=== PATIENT | female | born 1985 | race Caucasian/White ===

== ENCOUNTER 2023-05-06 07:58 | Outpatient (CLI) | payer BC, SELFPAY | END 2023-05-06 07:59 | disposition home or self-care (01) | PROVIDERS: PCP Family Medicine; Visit Provider Family Medicine | DX: Z00.00 Encounter for general adult medical examination without abnormal findings (principal); Z13.6 Encounter for screening for cardiovascular disorders; Z13.29 Encounter for screening for other suspected endocrine disorder; Z13.21 Encounter for screening for nutritional disorder | CPT/HCPCS: 80053; 80061; 82306 ==

== ENCOUNTER 2024-07-22 09:50 | Outpatient (CLI) | payer BC, SELFPAY | END 2024-07-22 09:51 | disposition home or self-care (01) | PROVIDERS: Visit Provider Obstetrics & Gynecology | DX: O20.9 Hemorrhage in early pregnancy, unspecified (principal); Z67.40 Type O blood, Rh positive | CPT/HCPCS: 84702; 86850; 86900; 86901 ==

== ENCOUNTER 2024-07-24 15:02 | Outpatient (CLI) | payer BC, SELFPAY | END 2024-07-24 15:03 | disposition home or self-care (01) | LOC: NFLDREF 19:53 | PROVIDERS: Visit Provider Obstetrics & Gynecology | DX: O20.9 Hemorrhage in early pregnancy, unspecified (principal) | CPT/HCPCS: 84702 ==

== ENCOUNTER 2024-07-26 13:58 | Outpatient (CLI) | payer BC, SELFPAY ==
--- NOTE | 2024-07-26 14:00 | CRLHL7_ITS ---
For Patients: As a result of the Century Cures Act, medical imaging exams and procedure reports are released immediately into your electronic medical record. You may view this report before your referring provider. If you have questions, please contact your health care provider. INDICATION: Dating and viability. LMP 06/08/2024. COMPARISON: None. TECHNIQUE: Real-time carreno-scale imaging of the pelvis was performed. FINDINGS: Sonographic imaging demonstrates a single living intrauterine gestation. The embryo has a regular cardiac rate measuring 139 beats per minute. The embryo`s crown-rump length measures 0.7 cm which corresponds to a gestational age of 6 weeks 4 days with sonographic due date 03/17/2025. There is a normal-appearing yolk sac. The placenta has not yet developed. No evidence of a perigestational hemorrhage. The right ovary measures 3.1 x 1.5 x 2.9 cm and the left ovary measures 2.0 x 2.2 x 2.4 cm. No free fluid in the pelvic cul-de-sac. IMPRESSION: 1. Single living intrauterine gestation corresponding to an ultrasound gestational age of 6 weeks 4 days with sonographic due date 03/17/2025. 2. The clinical gestational age by LMP is 6 weeks 6 days. Dictated by Tali Sousa MD @ 07/27/2024 2:58:33 AM (Electronically Signed)
== END 2024-07-26 13:59 | disposition home or self-care (01) ==
LOC: US 13:59
PROVIDERS: Visit Provider Obstetrics & Gynecology
DX: Z34.91 Encounter for supervision of normal pregnancy, unspecified, first trimester (principal); Z3A.01 Less than 8 weeks gestation of pregnancy
CPT/HCPCS: 76817

== ENCOUNTER 2024-08-23 10:29 | Outpatient (CLI) | payer BC, SELFPAY ==
--- NOTE | 2024-08-23 10:45 | CRLHL7_ITS ---
For Patients: As a result of the Cures Act, medical imaging exams and procedure reports are released immediately into your electronic medical record. You may view this report before your referring provider. If you have questions, please contact your health care provider. OB ULTRASOUND INDICATION: Follow-up early OB dating. TECHNIQUE: Real time carreno scale imaging of the fetus was performed. Transvaginal. LMP: 06/08/2024. JOY by LMP: 03/15/2025. GA: 10 w, 6 d. Previous US: Yes 07/26/2024. OJY by US: 03/17/2025. GA: 6 w, 4 d. CRL: 4.6 cm. 11 w 3 d. JOY: 03/11/2025. FHR: 169BPM. Gestational sac: 4.9 cm. Appears within normal limits. Yolk sac: 4.7 mm. Appears within normal limits. Right ovary: Within normal limits. 3.0 x 1.8 x 2.8 cm. Left ovary: Within normal limits. 3.4 x 2.0 x 2.1 cm. IMPRESSION: 1. Single living intrauterine with sonographic gestational age 11 weeks 3 days and sonographic due date 03/11/2025. 2. Subchorionic hemorrhage measures 2.6 x 0.5 x 3.3 cm. Dilip Ambrosio M.D. Diagnostic Radiologist [email or web address] JAYASHREE/[email or web address] [email or web address]/Dictated by: Dilip Ambrosio MD @ 08/23/2024 12:52:00 PM (Electronically Signed)
== END 2024-08-23 10:30 | disposition home or self-care (01) ==
LOC: US 10:30
PROVIDERS: Visit Provider Midwife
DX: Z34.91 Encounter for supervision of normal pregnancy, unspecified, first trimester (principal); O20.9 Hemorrhage in early pregnancy, unspecified; Z3A.11 11 weeks gestation of pregnancy
CPT/HCPCS: 76801

== ENCOUNTER 2024-08-23 12:01 | Outpatient (CLI) | payer BC, SELFPAY ==
[2024-08-23 21:32] LABS: Chlamydia DNA Amplified* NOT DETECTED (No Detected); GC DNA Amplified* NOT DETECTED (No Detected)
== END 2024-08-23 12:02 | disposition home or self-care (01) ==
PROVIDERS: Visit Provider Midwife
DX: Z36.89 Encounter for other specified antenatal screening (principal); O09.521 Supervision of elderly multigravida, first trimester; O21.9 Vomiting of pregnancy, unspecified; Z87.59 Personal history of other complications of pregnancy, childbirth and the puerperium; Z3A.10 10 weeks gestation of pregnancy
CPT/HCPCS: 76801; 82565; 82570; 83020; 83021; 84156; 84450; 84460; 84520; 84550; 85660; 86592; 86703; 86704; 86706; 86762; 86787; 86803; 86850; 86900; 86901; 87086; 87340; 87491; 87591

== ENCOUNTER 2024-08-26 06:45 | Outpatient (CLI) | payer BC, SELFPAY | END 2024-08-26 06:46 | disposition home or self-care (01) | LOC: NFLDREF 09-01 16:40 | PROVIDERS: Visit Provider Midwife | DX: O09.291 Supervision of pregnancy with other poor reproductive or obstetric history, first trimester (principal) | CPT/HCPCS: 82570; 84156 ==

== ENCOUNTER 2024-10-26 10:12 | Outpatient (CLI) | payer BC, SELFPAY | END 2024-10-26 10:13 | disposition home or self-care (01) | LOC: US 10:13 | PROVIDERS: Visit Provider Midwife | DX: O09.522 Supervision of elderly multigravida, second trimester (principal); Z3A.20 20 weeks gestation of pregnancy | CPT/HCPCS: 76811 ==

== ENCOUNTER 2024-12-26 10:59 | Outpatient (CLI) | payer BC, SELFPAY | END 2024-12-26 11:00 | disposition home or self-care (01) | LOC: NFLDREF 12-28 02:51 | PROVIDERS: Visit Provider Advanced Practice Midwife | DX: Z34.83 Encounter for supervision of other normal pregnancy, third trimester (principal) | CPT/HCPCS: 86592 ==

== ENCOUNTER 2025-01-24 15:54 | Outpatient (CLI) | payer BC, SELFPAY | END 2025-01-24 15:55 | disposition home or self-care (01) | LOC: NFLDREF 15:55 | PROVIDERS: Visit Provider Physician Assistant | DX: Z3A.32 32 weeks gestation of pregnancy (principal) | CPT/HCPCS: 84439; 84443 ==

== ENCOUNTER 2025-02-20 15:17 | Outpatient (CLI) | payer BC, SELFPAY | END 2025-02-20 15:18 | disposition home or self-care (01) | LOC: NFLDREF 02-22 17:26 | PROVIDERS: Visit Provider Advanced Practice Midwife | DX: O09.523 Supervision of elderly multigravida, third trimester (principal); O99.283 Endocrine, nutritional and metabolic diseases complicating pregnancy, third trimester; E05.90 Thyrotoxicosis, unspecified without thyrotoxic crisis or storm; Z87.59 Personal history of other complications of pregnancy, childbirth and the puerperium; Z3A.36 36 weeks gestation of pregnancy | CPT/HCPCS: 84443; 87081; 87653 ==

== ENCOUNTER 2025-02-24 08:30 | Outpatient (CLI) | payer BC, SELFPAY ==
--- NOTE | 2025-02-24 08:35 | W.PM.GYNPROC ---
Procedure Note Will [facility] bill your pro fee for this procedure?: Yes Procedure Description: The risks, benefits, and alternatives of performing an ECV were discussed on admission, including the risk of risks of a non-reassuring heart rate, PROM, placental abruption, possible emergency , and fetomaternal hemorrhage. We reviewed that success rate is dependent upon provider experience, amniotic fluid volume, placental location, and maternal weight. Regional anesthesia is associated with improved success. We discussed that in the case of a failed ECV, we plan a delivery for persistent malpresentation. Consent was obtained and the patient desired to proceed. Ultrasound confirmed [] breech malpresentation prior to procedure. Procedure Note: Patient was seen and examined by anesthesia. Spinal anesthesia was placed without complications. Terbutaline 0.25 mg SQ was given and we then proceeded with the procedure. With manual pressure applied to the maternal abdomen, we attempted version in both the clockwise and counterclockwise position. A total of [] attempts were made. Ultimately the procedure was [] successful and presentation at the conclusion was []. Both mom and baby were stable. During a period of recovery, she had a reactive and reassuring heart tracing with [] uterine contractions. She was discharged to home in stable condition, return precautions reviewed.
[2025-02-24 09:14] VITALS: PULSE 120; O2SAT 99
[2025-02-24 09:17] VITALS: BP 134/80; PULSE 112
[2025-02-24 09:18] VITALS: RESP 17; TEMP 36.9
[2025-02-24 09:19] VITALS: PULSE 103; O2SAT 98
[2025-02-24 09:24] VITALS: PULSE 114; O2SAT 97
--- NOTE | 2025-02-24 10:22 | PM.OBLDTN ---
OB - Triage/Final Diagnosis Visit Information Time Seen by Provider: 08:30 Narrative: The patient is a 39 year old 2 para 1 at 37 weeks gestation by LMP, who presents for scheduled external cephalic version. is complicated by malpresentation, AMA and GBS positivity. On arrival, patient noted uncertainty with proceeding. As such, presented to the bedside before IV/monitoring was started. Performed a bedside transabdominal ultrasound, where complete breech malpresentation was confirmed. Explained that I would advise against a single alberts breech vaginal delivery in the setting of significant morbidity/mortality. She expressed understanding and is agreement. Such, we discussed options for management of malpresentation at term including external cephalic version versus primary delivery at 39 weeks. The risks, benefits, and alternatives of performing an ECV were discussed, including the risk of risks of a non-reassuring heart rate that could necessitate emergency delviery, PROM, placental abruption, possible emergency , and fetomaternal hemorrhage. We reviewed that success rate is dependent upon provider experience, amniotic fluid volume, placental location, and maternal weight. Discussed consideration of terbutaline and regional anesthesia for improved likelihood of success. Alcira notes that she is uncomfortable with the risks of ECV. She notes she simply does not feel good about it and thus would like to proceed with scheduling a primary . Certainly, this is reasonable. She denies any regular/painful contractions, vaginal bleeding or leaking of fluid. Endorses active movement. We proceeded to discussion about primary delivery where we would confer malpresentation prior to proceeding. We reviewed the risks of bleeding, infection, damage to surrounding structures (uterus, tubes, ovaries, bowel, bladder, blood vessels, baby) and medical complications of surgery/anesthesia such as VTE, heart attack and stroke. After discussion, written consent was obtained for primary and proceed as indicated. Scheduling form completed to be completed in 39th week. NST was completed, initially nonreactive for absence of accelerations - ultimately became reactive with p.o. intake. Baseline a 140 beats per minute, moderate variability, several qualifying 15 x 15 accelerations seen, no decelerations. Patient was discharged to home with strict return precautions. Recommend routine visits in the clinic. She is free to continue spinning babies exercises in the interim. Evaluation Vital signs: Vital Signs - 24 hr 02/24/25 09:14 02/24/25 09:17 02/24/25 09:18 Temperature 98.4 F Pulse Rate 112 H Respiratory Rate 17 Blood Pressure 134/80 Pulse Oximetry 99 02/24/25 09:19 02/24/25 09:24 Temperature Pulse Rate Respiratory Rate Blood Pressure Pulse Oximetry 98 97
--- NOTE | 2025-02-24 11:57 | PC.OBNST ---
NST Note NST Note Start: 02/24/25 10:35 Freq: ONCE Status: Active Protocol: Document 02/24/25 11:51 VMM (Rec: 02/24/25 11:57 VMM [id number]) NST Note 3 Para (# of births) 1 EDC 03/15/25 Gestational Age In 37 Weeks & 2 Days Weeks & Days Patient Presented Other with Complaint(s) of Other Complaints Patient came in for a scheduled external cephalic version. Patient decided she did not want an external cephalic version. NST was obtained to check for well-being. Fetus is complete breech. Reactive Yes Appropriate for Yes Gestational Age ARTHUR Rausch RN Date 02/24/25 Reactive Yes Appropriate for Yes Gestational Age ARTHUR Torres RN Date 02/24/25 OB NST charge Yes Complete NST Note Yes via Write Note The provider's electronic signature indicates the NST is reactive/appropriate for gestational age. *Note to provider: If an addendum is required, open the patient's chart and click on the note under the Nurse/Allied Health tab.
== END 2025-02-24 11:45 | disposition home or self-care (01) ==
LOC: OB CLI 08:31 → OB 08:33
PROVIDERS: Visit Provider Obstetrics & Gynecology
DX: Z39.1 Encounter for care and examination of lactating mother (principal)
CPT/HCPCS: 59025; 76815; G0463

== ENCOUNTER 2025-03-13 12:02 | Outpatient (CLI) | payer BC, SELFPAY ==
--- NOTE | 2025-03-13 12:15 | CRLHL7_ITS ---
For Patients: As a result of the Century Cures Act, medical imaging exams and procedure reports are released immediately into your electronic medical record. You may view this report before your referring provider. If you have questions, please contact your health care provider. OB ULTRASOUND JOY by LMP or US: 03/15/2025. GA: 39 w, 5 d. Single. Comparison: 10/26/2024. INDICATION: Measuring large for dates. TECHNIQUE: Real time grayscale imaging of the fetus was performed. Transabdominal. CERVIX: Not visualized. POSITIONING: Vertex. AMNIOTIC FLUID: 5.6 cm. SDP (N: greater than 2 x 1 cm) PLACENTA: Technique: Transabdominal. PLACENTA POSITION: Posterior. DOPPLER: heart rate: 149 bpm. BIOMETRY: BPD: 9.2 cm. 37 w, 3 d, 29 percent. HC: 34.9 cm. 40 w, 4 d, 67 percent. AC: 39.4 cm. OOR, >97 percent. FL: 7.3 cm. 37 w, 3 d, 11 percent. FL/AC ratio: 18.55 percent. HC/AC ratio: 0.89. EFW: 4321 g. Weight: 9 lbs, 8 oz. age by this US: 38 w, 3 d. JOY by this US: 03/24/2025. Percentile by JOY: 95 percent. IMPRESSION: 1. Sonographic gestational age 38 weeks 3 days and sonographic due date 03/24/2025. Sonographic age is 9 days behind clinical age. 2. Estimated weight 95th percentile. Abdominal circumference greater than 97th percentile. Dilip Ambrosio M.D. Diagnostic Radiologist [email or web address] JAYASHREE/[email or web address] [email or web address]/Dictated by: Dilip Ambrosio MD @ 03/13/2025 1:01:00 PM (Electronically Signed)
== END 2025-03-13 12:03 | disposition home or self-care (01) ==
LOC: US 12:03
PROVIDERS: Visit Provider Advanced Practice Midwife
DX: O36.63X0 Maternal care for excessive fetal growth, third trimester, not applicable or unspecified (principal); Z3A.38 38 weeks gestation of pregnancy
CPT/HCPCS: 76816; 82565; 82570; 84156; 84450; 84460; 84520

== ENCOUNTER 2025-03-14 08:18 | Inpatient (IN) | payer BC, SELFPAY ==
[2025-03-14] VITALS (24 sets, daily range): BP systolic 99–136; BP diastolic 52–83; PULSE 69–144; RESP 16–18; TEMP 36.4–36.9; O2SAT 81–99; BMI 38.4
[2025-03-14] MEDS: AZITHROMYCIN 500 MG in 0.9 % SODIUM CHLORIDE 250 ml 250 ML 255 MG IVPB (08:50)
[2025-03-14] MEDS: LACTATED RINGERS 1000 ML 1,000 ML IV (09:00)
[2025-03-14 09:06] LABS: Alanine Aminotransferase* 13 U/L (4-35); Aspartate Amino Transferase* 25 U/L (12-35); Blood Urea Nitrogen* 5 mg/dL (5-24); Creatinine* 0.5 mg/dL (0.5-1.5); Est. Creatinine Clearance* 130.44; Estimated Glomerular Filt Rate 122 ml/min
[2025-03-14 09:08] LABS: Hematocrit 33.2 % (33.0-51.0); Hemoglobin* 10.8 gm/dL (12.0-16.0); Mean Corpuscular HGB Conc 33 gm/dL (32-36); Mean Corpuscular Hemoglobin 28 pg (26-34); Mean Corpuscular Volume 86 fL (80-100); RDW Coefficient of Variation % 14.1 % (11.5-15.5); Red Blood Count 3.88 m/uL (4.00-5.20); White Blood Count* 8.08 K/uL (4.50-11.00)
[2025-03-14 09:09] LABS: Immature Granulocytes Abs Auto 0.08 K/uL (0.00-0.30); Immature Granulocytes Pct Auto 1.0 %
[2025-03-14 09:10] LABS: Lymphocytes Absolute Auto 1.20 K/uL (0.90-2.90); Slide Review Reflex No
--- NOTE | 2025-03-14 12:08 | P.LDBA_ITS ---
Subjective History of Present Illness Narrative: Patient is being admitted to Labor and Delivery for primary elective by patient request in the setting of suspected macrosomia. She is a 39 year old -0-1-1 woman at 39 6/7 weeks gestation. She had an ultrasound yesterday for the indication of size greater than dates, notable for EFW 95% = 4321 g = 9 lb, 8 oz. AC was greater than 97%, and all other growth parameters were within normal ranges. Given this finding, she requested . Of note, she had a mildly elevated blood pressure for the 1st time yesterday, 142/70. Protein to creatinine ratio was elevated at 0.44. She had been noted to have proteinuria as early as 08/26/2024, with 24 hour urine showing 345 mg. Otherwise, preeclampsia labs were normal yesterday. Today, in [place], her systolic blood pressures are consistently 130s. This morning, she began having regular contractions and a small amount of bloody show. This feels similar to her 1st labor. She had an ultrasound for Her full history and physical was dictated by Dr. Darden on 02/27. Please see this for details. Specific Issues/Plans G3 P 1 Partner: Scot. Daughter at home 2.5yo. It's a girl! H&P completed by 02/27 by Adelso ? # Variable presentation - Oblique to breech in recent weeks - VERTEX on 02/27 and March 13 # Hx of preeclampsia first trimester Baby asa recommended at 12w0d Baseline labs: 24hr urine P/C ratio 0.27 # AMA: * Recommend Genetic Screening Test?-NIPT with carrier and gender. * 20-week Level II detailed ultrasound with MFM?-completed 10/26? # 7/8: HR 131, on repeat 115. TSH: .097L, Free T4 .86 normal. Subclinical hyperthyroidism Repeat TSH and free T4 in 4 weeks from 01/24/25: TSH 0.353 WNL Completed 02/20/25 # GBS + Recommend antibiotics in labor ? Imaging:? 1st trimester: Single living intrauterine with sonographic gestational age 11 weeks 3 days and sonographic due date 03/11/2025. Subchorionic hemorrhage measures 2.6 x 0.5 x 3.3 cm. Dilip Ambrosio MD @ 08/23/2024?? [facility]: 1. [place] intrauterine at 20w 0d gestational age. 2. None of the anomalies commonly detected by ultrasound were evident in the detailed anatomic survey described above. 3. Growth parameters and estimated weight were consistent with appropriate for gestational age pattern of growth. 4. The amniotic fluid volume appeared normal. Can offer IOL at 39 weeks for AMA/Pre-e. 03/13/2025: EFW 95%, AC greater than 97%, cephalic, normal fluid. ? COVID:?2020?-declined Flu:???declined Tdap:?01/09/25 RSV:?out of season 32wk Mental Health:?01/24/25 34wk hgb:??? Pap: [(Only high-risk abnormal pap in problem list)]? OB - Problem Based A/P Additional Plan (1) : Status: Acute (2) History of pre-eclampsia: Status: Acute (3) Elevated blood pressure reading without diagnosis of hypertension: Status: Acute (4) Proteinuria affecting : Status: Acute (5) macrosomia affecting management of mother, antepartum: Status: Acute Plan Likely in early labor. Alcira confirms her desire for elective primary . Consent was reviewed with and signed by Dr. Guerrero yesterday. Alcira notes no questions regarding the consent. She is NPO. We will plan for azithromycin and cefazolin for preoperative prophylaxis. Continue to follow BPs and preeclampsia labs . Delivery/Labor/Induction Plan Plan: Section OB Exam Physical Exam Vital signs: Temp Pulse Resp BP Pulse Ox 98.4 F 91 18 132/70 97 03/14/25 07:21 03/14/25 11:43 03/14/25 07:21 03/14/25 11:43 03/14/25 07:31 Narrative: Physical exam: General: No acute distress Psych: Alert and oriented x3, full affect HEENT: Normocephalic, atraumatic Neck: No cervical adenopathy, no thyromegaly Heart: Regular rate and rhythm, no murmur rub or gallop Lungs: Clear to auscultation bilaterally Abdomen: Soft, nontender, gravid, cephalic lie Lower extremities: No edema or erythema
[2025-03-14] MEDS: LACTATED RINGERS 1000 ML 1,000 ML 125 ML IV ×2 (12:40→13:07)
--- NOTE | 2025-03-14 13:35 | SUR.OPER ---
Dr. Urena stated to the OR nurse and tech that she was okay with placenta not being sent to pathology since patient requested to keep the placenta.
--- NOTE | 2025-03-14 14:16 | P.ANES_ITS ---
Anesthesia Charges Start Date/Time Anesthesia Start Date: 03/14/25 Anesthesia Start Time: 12:33 Stop Date/Time Anesthesia Stop Date: 03/14/25 Anesthesia Stop Time: 14:10 Coding CPT Codes CPT Codes: ANESTH CS DELIVERY - 63876 ([id number]) QX - ANVIL WORKER SVC W/ MD MED DIRECTION, QK - FRONT OFFICE REPRESENTATIVE 2-4 CNCRNT ANES PROC, P2 - PATIENT W/MILD SYST DISEASE
--- NOTE | 2025-03-14 14:16 | W.ANESCHARGE ---
Anesthesia Charges Start Date/Time Anesthesia Start Date: 03/14/25 Anesthesia Start Time: 12:33 Stop Date/Time Anesthesia Stop Date: 03/14/25 Anesthesia Stop Time: 14:10 Coding CPT Codes CPT Codes: ANESTH CS DELIVERY - 90172 ([id number]) QX - STREET SWEEPER SVC W/ MD MED DIRECTION, QK - DIESEL ENGINE ASSEMBLER 2-4 CNCRNT ANES PROC, P2 - PATIENT W/MILD SYST DISEASE
--- NOTE | 2025-03-14 14:18 | P.ANES_ITS ---
Anesthesia Charges Start Date/Time Anesthesia Start Date: 03/14/25 Anesthesia Start Time: 12:33 Stop Date/Time Anesthesia Stop Date: 03/14/25 Anesthesia Stop Time: 14:10 Coding CPT Codes CPT Codes: ANESTH CS DELIVERY - 64430 ([id number]) P1 - NORMAL HEALTHY PATIENT, QK - WEAVER HAND 2-4 CNCRNT ANES PROC
--- NOTE | 2025-03-14 14:18 | W.ANESCHARGE ---
Anesthesia Charges Start Date/Time Anesthesia Start Date: 03/14/25 Anesthesia Start Time: 12:33 Stop Date/Time Anesthesia Stop Date: 03/14/25 Anesthesia Stop Time: 14:10 Coding CPT Codes CPT Codes: ANESTH CS DELIVERY - 13339 ([id number]) P1 - NORMAL HEALTHY PATIENT, QK - BARREL WASHER MACHINE 2-4 CNCRNT ANES PROC
--- NOTE | 2025-03-14 19:34 | PM.OBPRCCS ---
Procedure Date of procedure: 03/14/25 Pre-op diagnosis: Suspected macrosomia Early labor 39 weeks, 6 days gestation Post-op diagnosis: other (Confirmed LGA . Otherwise as above) Procedure Done: Global Will [facility] bill your pro fee for this procedure?: Yes Blood Loss Measurement Type: QBL (595) Bakri Used: No IV fluids (mL): 1,800 Urine Output (mL): 200 Surgeon: Celine Urena MD Anesthesia Type: Spinal Findings: Female , cephalic 0 P presentation, Apgars of 8 and 9, weight 4555 g, or 10 lb, 1 oz Slightly scarred and ragged appearance of the serosa of the posterior uterine segment extending to the uterosacral ligaments. Otherwise, normal appearance of bilateral tubes and ovaries. Procedure Name: Primary low-transverse section Biopsy of uterine serosa Procedure Description: Patient was taken to the operating room with IV running. She received azithromycin and cefazolin in preoperative prophylaxis. Spinal anesthesia was administered. Wilcox catheter was inserted. She was prepped and draped in the usual sterile fashion. Anesthesia was tested and found to be adequate. A low-transverse skin incision was made with a scalpel and carried through to the underlying layer of fascia with the scalpel. The subcutaneous fat was dissected bluntly off the underlying fascia. The fascia was nicked in the midline with a scalpel, and this incision was extended laterally with scissors. The rectus muscles were in the midline. Peritoneum was identified and entered bluntly. Bovie was used to widen this opening laterally. Jun O retractor was inserted and tightened down, providing excellent visualization of the lower uterine segment. The bladder reflection was found to be well below the planned site for hysterotomy. Low-transverse uterine incision was made with a scalpel. Incision was widened bluntly. Meconium-stained fluid was noted with rupture of the bag of water. The infant's head was grasped through the hysterotomy. Initial efforts to deliver she had without a fundal pressure were unsuccessful. The Jun O retractor was removed, the fascia dissected further off the underlying rectus muscles superiorly, and the skin incision widened. This allowed delivery of the head, which was de flexed and in no P position. The remainder of the body delivered without incident. Cord was clamped and cut after 30 seconds. was handed off to attending pediatric provider. The placenta was delivered manually as traction on the cord led to fragmentation of the placenta. The uterus was exteriorized with some difficulty due to its large size. It was cleaned of all clots and debris with the dry lap pad. The hysterotomy was reapproximated with 0 Vicryl in a running, locked fashion. Second layer of the same suture was used in imbricating fashion to obtain hemostasis. The adnexa were examined and noted to be normal in appearance. The posterior uterine serosa was biopsied at the site showing pink nodularity adjacent to the above described findings The cul-de-sac and gutters were cleansed with dampened laparotomy sponge, removing any further clots and debris. The uterus was returned to the abdomen. The hysterotomy was reexamined and found to be hemostatic. The peritoneum was reapproximated with 2 0 Vicryl in a running fashion. The rectus muscles were examined and found to be hemostatic. The fascia was reapproximated with 0 Vicryl in a running fashion. Subcutaneous fat was irrigated and Bovie used on oozing vessels. The subcutaneous fat was reapproximated with 2 0 plain gut suture in an interrupted fashion. The skin was closed with a subcuticular stitch of 4-0 Monocryl. Surgical glue was applied above this. Patient tolerated procedure well was taken to recovery area in stable condition. Complications: None Pathology: specimen obtained, sent to pathology (Biopsy of posterior uterine serosa) Surgery Debrief Performed: Yes Condition: stable Disposition: floor [place] Infant total score - 1 minute: 8 total score - 5 minute: 9
[2025-03-14] MEDS: ACETAMINOPHEN 500 MG TABLET 1000 MG PO (20:22)
[2025-03-15] VITALS (8 sets, daily range): BP systolic 97–156; BP diastolic 61–87; PULSE 78–114; RESP 16–20; TEMP 36.6–37; O2SAT 95–99
[2025-03-15 05:30] LABS: Hematocrit 23.3 % (33.0-51.0); Immature Granulocytes Abs Auto 0.03 K/uL (0.00-0.30); Immature Granulocytes Pct Auto 0.3 %; Mean Corpuscular HGB Conc 34 gm/dL (32-36); Mean Corpuscular Hemoglobin 29 pg (26-34); Mean Corpuscular Volume 87 fL (80-100); RDW Coefficient of Variation % 14.2 % (11.5-15.5); Red Blood Count 2.69 m/uL (4.00-5.20); White Blood Count* 10.73 K/uL (4.50-11.00)
[2025-03-15 05:32] LABS: Hemoglobin* 7.8 gm/dL (12.0-16.0); Lymphocytes Absolute Auto 1.60 K/uL (0.90-2.90)
[2025-03-15 05:33] LABS: Slide Review Reflex No
[2025-03-15 05:43] LABS: Alanine Aminotransferase* 10 U/L (4-35); Aspartate Amino Transferase* 30 U/L (12-35); Blood Urea Nitrogen* 5 mg/dL (5-24); Creatinine* 0.5 mg/dL (0.5-1.5); Est. Creatinine Clearance* 130.44; Estimated Glomerular Filt Rate 122 ml/min
[2025-03-15] MEDS: ACETAMINOPHEN 500 MG TABLET 1000 MG PO ×3 (06:22→18:15)
--- NOTE | 2025-03-15 07:42 | PM.OBPNVD1 ---
OB - PN:Subj Subjective Date Seen: 03/15/25 Narrative: Alcira is a 39 year old who was admitted for early labor and desired a primary elective due to macrosomia and proceeded to have a primary ?.The patient feels well.? The pain is well controlled with current medications.? She has no new complaints.? Urinary output is adequate and she is voiding without difficulty.? Has a good appetite, is tolerating a general diet, is passing flatus, and has not had a bowel movement.? Has scant amount of rubra lochia.? She is ambulating well and is not lightheaded or dizzy. She is and reports it is going well.? Hemoglobin has dropped to 7.8 this morning. She has remained normotensive during her inpatient stay. OB - PN: Obj Exam Physical Exam: Vital signs: Temp Pulse Resp BP Pulse Ox O2 Del Method 98.6 F 78 16 119/74 98 Room Air 03/15/25 03:31 03/15/25 03:31 03/15/25 03:31 03/15/25 03:31 03/15/25 03:31 03/15/25 03:31 Narrative: GENERAL APPEARANCE:? normal affect, alert, no distress MOOD:? appropriate CHEST:? clear to auscultation HEART:? regular rate and rhythm ABDOMEN:? soft, non-tender the uterine fundus is 1 finger breadth above Umbilicus, Midline and is appropriate for the stage of recovery after birthing a LGA baby. EXTREMITIES:? normal and moderate edema Incision: Surgical dressing intact, no surrounding erythema, abnormal induration or discharge noted on dressing OB - PN: Obj Data Labs Labs: Laboratory Results - last 24 hr 03/14/25 03/15/25 08:45 05:21 WBC 8.08 10.73 RBC 3.88 L 2.69 L Hgb 10.8 L 7.8 L* Hct 33.2 23.3 L MCV 86 87 MCH 28 29 MCHC 33 34 RDW Coeff of Guilherme 14.1 14.2 Plt Count 198 165 Neut % (Auto) 75.2 H 72.7 H Lymph % (Auto) 14.6 L 15.0 L [place] % (Auto) 8.7 11.3 H Eos % (Auto) 0.1 0.5 Baso % (Auto) 0.4 0.2 Neut # (Auto) 6.10 7.80 H Lymph # (Auto) 1.20 1.60 [place] # (Auto) 0.70 1.20 H Eos # (Auto) 0.01 0.05 Baso # (Auto) 0.03 0.02 Abs Immat Gran (auto) 0.08 0.03 Imm/Tot Granulo (auto) 1.0 0.3 BUN 5 5 Creatinine 0.5 0.5 Estimated Creat Clear 130.44 130.44 Estimated GFR 122 122 AST 25 30 ALT 13 10 Blood Type O Positive Antibody Screen NEGATIVE OB - PN: A/P Delivery Assessment and Plan (1) Status post primary low transverse section: Status: Acute (2) care and examination: Status: Acute Plan Comments: PP day #1 Routine care Offered blood transfusion to aid in recovery. Declined at this time. She prefers to take some of her desiccated liver pills in lieu of iron supplementation also. If she later decides she would like a transfusion, she will let us know. Stool softeners recommended. Nursing to remove dressing per protocol. May see as desired Repeat hgb 03/16 AM Anticipate discharge 03/16/2025
[2025-03-15] MEDS: DOCUSATE SODIUM 100 MG CAPSULE PO (08:05)
[2025-03-15] MEDS: SIMETHICONE 80 MG TAB.CHEW PO (08:32)
--- NOTE | 2025-03-15 13:30 | PM.ANPOST ---
Post Anesthesia Note Post Anesthesia Note Patient seen: Inpatient Respiratory Status: adequate Cardiovascular Status: adequate Mental Status: baseline Pain: adequate Temp: baseline Anesthetic awareness: N/A Complications: none Follow care: none
[2025-03-15] MEDS: LABETALOL HCL 100 MG TABLET PO (20:45)
[2025-03-16] VITALS (15 sets, daily range): BP systolic 105–143; BP diastolic 64–82; PULSE 80–106; RESP 16–18; TEMP 36.6–36.9; O2SAT 97–98
[2025-03-16] MEDS: ACETAMINOPHEN 500 MG TABLET 1000 MG PO ×4 (00:32→19:21)
[2025-03-16] MEDS: IBUPROFEN 600 MG TABLET PO ×4 (03:30→21:27)
[2025-03-16 05:46] LABS: Hemoglobin* 7.3 gm/dL (12.0-16.0)
--- NOTE | 2025-03-16 08:00 | PM.OBPNVD1 ---
OB - PN:Subj Subjective Time Seen by Provider: 07:45 Date Seen: 03/16/25 Patient comments OB post-: pain well controlled, tolerating diet and flatus present status: doing well feeding status: breast and bottle feeding Narrative: Alcira is sitting in bed. Says she just finished nursing and got baby to sleep. Only slept from [id number] last night and is very tired but doing well. Pain is controlled. Bleeding controlled. Ambulating independently. Eating and drinking. Voiding and has had a bowel movement. Happy with her decision to have a c section. Feels it was the right choice. Discussed low hemoglobin and patient changed her mind and now does want a blood transfusion. Says she can tell she hardly has any breastmilk and doesn't want to have a supply issue d/t low hemoglobin. Questions answered regarding transfusion and order placed for 1 unit PRBC. OB - PN: Obj Exam Physical Exam: Vital signs: Temp Pulse Resp BP Pulse Ox O2 Del Method 98.1 F 102 H 16 120/69 97 Room Air 03/16/25 04:40 03/16/25 06:26 03/16/25 06:26 03/16/25 06:26 03/16/25 06:26 03/16/25 06:26 Narrative: Constitutional: no acute distress Mood: calm, cooperative, content Abdomen: soft, tender, Fundus firm and 1cm below umbilicus. Appropriate for this stage of hea Incision: low-transverse incision- with surgical glue. No redness, drainage. ling. Extremities: +3 pitting edema in feet Cardiac: regular heart rate, occasional murmur heard Respiratory: regular breathing effort, lungs clear to auscultation Breasts: declined exam OB - PN: Obj Data Labs Labs: Laboratory Results - last 24 hr 03/14/25 03/16/25 08:45 05:34 Hgb 7.3 L* RPR Screen Non Reactive OB - PN: A/P Delivery Assessment and Plan (1) Status post primary low transverse section: Problem details: Elective due to suspected macrosomia. (North), 10#1oz. Status: Acute (2) care and examination: Status: Acute (3) Gestational HTN: Problem details: diagnosed Status: Acute (4) Anemia due to acute blood loss: Status: Acute (5) Pre-eclampsia: Problem details: preE without SF Status: Acute Plan primary day 2 1 unit PRBC today and recheck Hgb at 2000 Rest, hydrate, breastfeed Continue blood pressure management Plan for blood pressure check with nurse 3-5 days after discharge Plan for discharge tomorrow Plan day: 2 Plan: routine care
[2025-03-16] MEDS: LABETALOL HCL 100 MG TABLET PO ×2 (09:14→21:01)
[2025-03-16] MEDS: DOCUSATE SODIUM 100 MG CAPSULE PO (09:14)
[2025-03-16 20:36] LABS: Hematocrit 23.5 % (33.0-51.0); Immature Granulocytes Abs Auto 0.09 K/uL (0.00-0.30); Immature Granulocytes Pct Auto 1.0 %; Mean Corpuscular HGB Conc 32 gm/dL (32-36); Mean Corpuscular Hemoglobin 29 pg (26-34); Mean Corpuscular Volume 89 fL (80-100); RDW Coefficient of Variation % 14.8 % (11.5-15.5); Red Blood Count 2.65 m/uL (4.00-5.20); White Blood Count* 9.08 K/uL (4.50-11.00)
[2025-03-16 20:40] LABS: Hemoglobin* 7.6 gm/dL (12.0-16.0); Lymphocytes Absolute Auto 1.70 K/uL (0.90-2.90); Slide Review Reflex No
[2025-03-17 01:30] VITALS: BP 104/65; PULSE 86; RESP 16; TEMP 36.7; O2SAT 98
[2025-03-17] MEDS: ACETAMINOPHEN 500 MG TABLET 1000 MG PO ×2 (01:59→08:55)
[2025-03-17] MEDS: IBUPROFEN 600 MG TABLET PO (04:35)
[2025-03-17 05:14] VITALS: BP 121/75; PULSE 98; RESP 16; TEMP 36.8; O2SAT 100
[2025-03-17 05:34] LABS: Hemoglobin* 7.9 gm/dL (12.0-16.0)
--- NOTE | 2025-03-17 08:49 | PM.OBDSVD1 ---
DS: Providers Provider Time Seen by Provider: 07:45 Date Seen: 03/17/25 Date of admission: 03/14/25 08:18 Primary care physician: Not a Local Provider Admitting Clinician: Celine Urena MD Attending Physician on discharge: Deborah Park CNM Date of Discharge: 03/17/25 DS: Diagnosis Discharge Diagnosis (1) care and examination: Status: Acute (2) Status post primary low transverse section: Status: Acute Problem details: Elective due to suspected macrosomia. (F), 10#1oz. (3) Anemia due to acute blood loss: Status: Acute (4) Pre-eclampsia: Status: Acute Problem details: Check BP daily at home and schedule appointment with OB MD in 3-5 days for BP check. Exam Narrative: Exam Narrative: GENERAL APPEARANCE:? normal affect, alert, no distress? MOOD:? appropriate? CHEST:? clear to auscultation and percussion? HEART:? regular rate and rhythm? BREASTS: soft, nontender, no erythema, nipples intact? ABDOMEN:? soft, non-tender the uterine fundus is firm and is appropriate for the stage of recovery. Incision is C/D/I, no erythema or exudates.? PERINEUM:? not examined.? EXTREMITIES:? normal and no edema? Const: Vital Signs, click to edit/add: Vital Signs - 24 hr 03/16/25 09:13 03/16/25 09:35 03/16/25 09:56 Temperature 97.9 F 98.3 F Pulse Rate 97 89 Pulse Rate [Pulse Oximeter] 80 Respiratory Rate 18 16 18 Blood Pressure 131/80 120/77 Blood Pressure [Ri ght Arm] 124/76 Pulse Oximetry 98 97 97 Oxygen Delivery Me thod Room Air Room Air Room Air 03/16/25 10:26 03/16/25 10:56 03/16/25 11:19 Temperature 98.1 F 98.1 F 98.1 F Pulse Rate 106 H 93 92 Pulse Rate [Pulse Oximeter] Respiratory Rate 18 18 18 Blood Pressure 130/76 117/75 106/64 Blood Pressure [Ri ght Arm] Pulse Oximetry 98 98 98 Oxygen Delivery Me thod Room Air Room Air Room Air 03/16/25 11:19 03/16/25 12:17 03/16/25 12:17 Temperature 98.1 F 98.4 F 98.4 F Pulse Rate 87 Pulse Rate [Pulse Oximeter] 92 87 Respiratory Rate 18 18 18 Blood Pressure 112/67 Blood Pressure [Ri ght Arm] 106/64 112/67 Pulse Oximetry 98 97 97 Oxygen Delivery Me thod Room Air Room Air Room Air 03/16/25 17:23 03/16/25 19:25 03/16/25 20:58 Temperature 98.1 F 98.4 F Pulse Rate Pulse Rate [Pulse Oximeter] 88 102 H 97 Respiratory Rate 18 16 16 Blood Pressure Blood Pressure [Ri ght Arm] 138/81 124/82 115/75 Pulse Oximetry 98 98 97 Oxygen Delivery Me thod Room Air Room Air Room Air 03/17/25 01:30 03/17/25 05:14 Temperature 98.1 F 98.2 F Pulse Rate Pulse Rate [Pulse Oximeter] 86 98 Respiratory Rate 16 16 Blood Pressure Blood Pressure [Ri ght Arm] 104/65 121/75 Pulse Oximetry 98 100 Oxygen Delivery Me thod Room Air Room Air OB - DS: Summary Hospital Course Hospital Course: The patient is a 39 year old G 3 P 2012 at 39+ weeks gestation that was admitted to the [facility] on 03/14/25 for elective primary section for macrosomia. She had an uncomplicated delivery. She delivered a viable female . She is breast feeding. the patient has done well. Alcira feels well.? Her pain is well controlled with current medications.? She has no new complaints.? Urinary output is adequate and she is voiding without difficulty.? Has a good appetite, is tolerating a general diet, is passing flatus, and has had a bowel movement.? Has scant amount of rubra lochia.? She is ambulating well, asymptomatic anemia persisting after transfusion of 1U PRBCs yesterday; would like IV iron to aid in PP recovery from ABLA.? Peripartum Data Infant delivery method: Primary C/S; Non-Labored Procedures: Procedures Operation Date: 03/14/25 09:00 Actual Procedure Side Surgeon p Primary Low Transverse Section, Biopsy of Posterior Uterine Serosa Celine Urena MD complications: none Gender: Female Infant Discharge Plan: Home Status at Discharge Functional status at discharge: independent ambulation Overall status at discharge: patient is progressing back to baseline Time Spent with Patient Time attestation: Total time spent providing and/or coordinating discharge services: Time spent: Greater than 30 minutes Discharge Plan Discharge Disposition: Home, Self-Care Date of Admission: 03/14/25 08:18 Attending Provider on Discharge: Deborah Park Primary Care Provider: Provider,Not a Local Condition: Stable Anticipated Discharge Date/Time: 03/17/25 12:00 Discharge Medications: New docusate sodium 100 mg Capsule 100 mg PO BID PRN (Reason: constipation) Qty: 60 0RF labetalol 100 mg Tablet 100 mg PO BID Qty: 60 0RF oxycodone 5 mg tablet 5 - 10 mg PO Q4H PRN (Reason: pain) Qty: 10 0RF oxycodone 5 mg tablet 5 - 10 mg PO Q4H PRN (Reason: pain) Qty: 10 0RF Continued Classic 28 mg iron- 800 mcg tablet 1 tab PO QDAY PRN Discontinued aspirin 81 mg tablet 81 mg PO QDAY No Action oxycodone 5 mg tablet 5 mg PO Q4H PRN (Reason: pain) Qty: 10 0RF Discharge Orders: Discharge Order (Routine); Ordered 03/17/25 Ordered By: Deborah Park Patient Education: OB High Blood Pressure DC, OB /Breast Feeding Activity Level: Activity as Tolerated Discharge Diet: Regular Follow Up Appointments: Provider,Not a Local [Primary Care Provider, Family Practice] Forms: Patient Belongings, MyHealth Info Instructions Discharge Comments: Need clinic appointment in 3-5 days for BP check.
[2025-03-17] MEDS: LABETALOL HCL 100 MG TABLET PO (08:55)
[2025-03-17 09:00] VITALS: BP 134/79; PULSE 105; RESP 16; TEMP 36.8; O2SAT 98
[2025-03-17] MEDS: IRON SUCROSE COMPLEX 200 MG in 0.9 % SODIUM CHLORIDE 100 ml 100 ML 440 MG IVPB (11:02)
[2025-03-17 11:03] VITALS: BP 125/78; PULSE 99; RESP 16; O2SAT 97
== END 2025-03-17 12:35 | disposition home or self-care (01) | DRG 540 ==
LOC: OB OUT 08:18 → OB 08:41
PROVIDERS: Advanced Practice Midwife; Midwife; Obstetrics & Gynecology; Admitting Provider Obstetrics & Gynecology; Visit Provider Obstetrics & Gynecology
PROC: 10D00Z1 Extraction of Products of Conception, Low, Open Approach (ICD-10-PCS; CPT 59514; principal; 2025-03-14 11:30)
DX: O36.63X0 Maternal care for excessive fetal growth, third trimester, not applicable or unspecified (principal); O99.824 Streptococcus B carrier state complicating childbirth; O14.05 Mild to moderate pre-eclampsia, complicating the puerperium; O13.5 Gestational [pregnancy-induced] hypertension without significant proteinuria, complicating the puerperium; O90.81 Anemia of the puerperium; D62 Acute posthemorrhagic anemia; Z3A.39 39 weeks gestation of pregnancy; Z37.0 Single live birth
CPT/HCPCS: 01961; 36415; 36430; 82565; 84450; 84460; 84520; 85018; 85025; 86592; 86850; 86900; 86901; 86922; 88305; A4314; A9270; J0456; J0665; J0666; J0690; J1100; J1756; J1885; J2371; J2405; J2590; J7050; J7120; P9016

== ENCOUNTER 2025-03-21 09:21 | Outpatient (CLI) | payer BC, SELFPAY | END 2025-03-21 09:22 | disposition home or self-care (01) | PROVIDERS: Visit Provider Physician Assistant | DX: O14.95 Unspecified pre-eclampsia, complicating the puerperium (principal) | CPT/HCPCS: 82565; 84450; 84460; 84520 ==

== ENCOUNTER 2025-03-22 13:23 | Outpatient (CLI) | payer BC, SELFPAY | END 2025-03-22 13:24 | disposition home or self-care (01) | LOC: NFLDREF 03-28 09:04 | PROVIDERS: Visit Provider Physician Assistant | DX: O14.95 Unspecified pre-eclampsia, complicating the puerperium (principal) | CPT/HCPCS: 82565; 84450; 84460; 84520 ==

== ENCOUNTER 2025-04-26 09:34 | Outpatient (CLI) | payer BC, SELFPAY | END 2025-04-26 09:35 | disposition home or self-care (01) | PROVIDERS: Visit Provider Physician Assistant | DX: R53.83 Other fatigue (principal) | CPT/HCPCS: 82306; 84443 ==